=== PATIENT | female | born 1965 ===

== ENCOUNTER 2017-02-18 12:02 | Emergency (ER) | payer OTHER ==
[2017-02-18 12:17] VITALS: RESP 18; TEMP 97.9
--- NOTE | 2017-02-18 13:07 | C.PDOC ---
History Of Present Illness 51 y/o female presents to the ED with complains of upper right back pain x5 months. Pain is worse with arm movement, mostly below the scapula. Pt was seen by PMD, XR ordered but never completed due to insurance issue. Pt denies weakness, numbness, incontinence or any other complaints. Chief Complaint (Nursing): Back Pain History Per: Patient History/Exam Limitations: no limitations Onset/Duration Of Symptoms: Days Current Symptoms Are (Timing): Still Present Quality Of Discomfort: "Pain" Severity: Moderate Associated Symptoms: None Exacerbating Factor(s): Movement Recent travel outside of the [place]: No Past Medical History Reviewed: Historical Data, Nursing Documentation, Vital Signs Vital Signs: Last Vital Signs Temp 97.9 F 02/18/17 12:13 Pulse 60 02/18/17 14:42 Resp 18 02/18/17 14:42 BP 126/71 02/18/17 14:42 Pulse Ox 100 02/18/17 14:42 - Medical History PMH: HTN Family History: States: Unknown Family Hx - Social History Hx Tobacco Use: No Hx Alcohol Use: Yes Hx Substance Use: No - Immunization History Hx Tetanus Toxoid Vaccination: No Hx Influenza Vaccination: No Hx Pneumococcal Vaccination: No Review Of Systems Except As Marked, All Systems Reviewed And Found Negative. Constitutional: Negative for: Fever Genitourinary: Negative for: Incontinence Musculoskeletal: Positive for: Back Pain Neurological: Negative for: Weakness, Numbness Physical Exam - Physical Exam Appears: Non-toxic, No Acute Distress Skin: Warm, Dry, No Rash Head: Atraumatic, Normacephalic Back: No Vertebral Tenderness, No Muscle Spasm, Paraspinal Tenderness (mild tenderness below right scapula) Extremity: Normal ROM Extremity: Bilateral: Atraumatic Neurological/Psych: Oriented x3, Normal Motor, Normal Sensation ED Course And Treatment O2 Sat by Pulse Oximetry: 99 (on room air) Pulse Ox Interpretation: Normal - Other Rad XR right scapula X-Ray: Viewed By Me, Read By Radiologist Interpretation: Accession No. : [id number]. Patient Name / ID : EMERITA WEBB S / [id number]. Exam Date : 02/18/2017 12:59:04 ( Approved ). Study Comment : Sex / Age : F / 51Y. Creator : Rojelio Santamaria MD. Dictator : Rojelio Santamaria MD. Mechanical Maintenance Engineer : Power System Dispatcher : Rojelio Santamaria MD. Approver2 : Report Date : 02/18/2017 13:47:53. My Comment : . PROCEDURE: Right scapula 02/18/2017. HISTORY: pain. COMPARISON: Correlation made with concurrent radiograph chest. TECHNIQUE: Two views right scapula. FINDINGS: No evidence of acute displaced fracture nor dislocation so far as can be seen. The osseous structures appear intact. Mild degenerative changes right acromioclavicular and right glenohumeral joints. . IMPRESSION: No fracture seen. 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 CXR X-Ray: Viewed By Me, Read By Radiologist Interpretation: Accession No. : [id number]. Patient Name / ID : EMERITA WEBB S / [id number]. Exam Date : 02/18/2017 12:59:16 ( Approved ). Study Comment : Sex / Age : F / 51Y. Creator : Rojelio Santamaria MD. Dictator : Rojelio Santamaria MD. Mechanical Maintenance Engineer : Power System Dispatcher : Rojelio Santamaria MD. Approver2 : Report Date : 02/18/2017 13:46:26. My Comment : . HISTORY: right post trunk pain. COMPARISON: No prior. TECHNIQUE: Chest PA and lateral. FINDINGS: LUNGS: No focal consolidation. Suspect tiny granuloma left lateral mid lung field. PLEURA: No significant pleural effusion identified. No pneumothorax apparent. CARDIOVASCULAR: Normal. OSSEOUS STRUCTURES: No significant abnormalities. VISUALIZED UPPER ABDOMEN: Normal. OTHER FINDINGS: None. IMPRESSION: No focal consolidation. Suspect tiny granuloma left lateral mid lung field. . Disposition - Disposition Referrals: Juanpablo Green III, MD [Staff Provider] - Disposition: HOME/ ROUTINE Disposition Time: 14:31 Condition: GOOD Additional Instructions: Follow up with PMD within 1-2 days. Return to ED if feel worse. Prescriptions: Ibuprofen [Motrin Tab] 600 mg PO Q8 #30 tab traMADol [Ultram] 50 mg PO Q6 #30 tab Instructions: Back Pain (ED) - Clinical Impression Clinical Impression: Thoracic back pain - PA / MAGAZINE JOURNALIST / Resident Statement MD/DO has reviewed & agrees with the documentation as recorded. - Scribe Statement The provider has reviewed the documentation as recorded by the Asmitaibtheo Vasquez All medical record entries made by the Asmitaibtheo were at my direction and personally dictated by me. I have reviewed the chart and agree that the record accurately reflects my personal performance of the history, physical exam, medical decision making, and the department course for this patient. I have also personally directed, reviewed, and agree with the discharge instructions and disposition.
--- NOTE | 2017-02-18 13:48 | RAD ---
HISTORY: right post trunk pain COMPARISON: No prior. TECHNIQUE: Chest PA and lateral FINDINGS: LUNGS: No focal consolidation. Suspect tiny granuloma left lateral mid lung field. PLEURA: No significant pleural effusion identified. No pneumothorax apparent. CARDIOVASCULAR: Normal. OSSEOUS STRUCTURES: No significant abnormalities. VISUALIZED UPPER ABDOMEN: Normal. OTHER FINDINGS: None. IMPRESSION: No focal consolidation. Suspect tiny granuloma left lateral mid lung field. .
--- NOTE | 2017-02-18 13:49 | RAD ---
PROCEDURE: Right scapula 02/18/2017 HISTORY: pain COMPARISON: Correlation made with concurrent radiograph chest TECHNIQUE: Two views right scapula FINDINGS: No evidence of acute displaced fracture nor dislocation so far as can be seen. The osseous structures appear intact. Mild degenerative changes right acromioclavicular and right glenohumeral joints. . IMPRESSION: No fracture seen. 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
[2017-02-18 14:43] VITALS: BP 126/71; PULSE 60
[2017-02-18 15:43] VITALS: O2SAT 99
== END 2017-02-18 14:42 | disposition home or self-care (01) ==
LOC: C.ER 12:02
DX: M54.6 Pain in thoracic spine (principal)